=== PATIENT | female | born 1960 | race African-American/Black ===

== ENCOUNTER 2018-10-06 17:21 | Inpatient (IN) | payer SELFPAY ==
[~2018-10-06] VITALS: Ht 167.6 cm; Wt 74.8 kg
[2018-10-06] MEDS ORDERED: LORAZEPAM 2MG/ML CPJ IV ONE (18:00)
[2018-10-06 18:14] LABS: CHLORIDE 80 mEq/L (98-107)
[2018-10-06 18:16] LABS: BASOPHILS % 0.3 % (0.0-2.0); HEMATOCRIT. 29.5 % (36.0-48.0); LYMPHOCYTES % 11.4 % (20.0-50.0); MEAN CORPUSCULAR HEMOGLOBIN 32.8 pg (28.0-32.0); MEAN CORPUSCULAR VOLUME 96.3 fL (81.0-99.0); MEAN PLATELET VOLUME 6.7 fl (7.4-10.4); MONOCYTES % 7.6 % (2.0-8.0); NEUTROPHILS % 80.7 % (40.0-76.0); PLATELET 198 x1000/uL (130-400); RED BLOOD CELL COUNT 3.07 mill/uL (4.2-5.4); RED CELL DISTRIBUTION WIDTH 14.1 % (11.6-14.6)
[2018-10-06 18:17] LABS: ETHANOL BLOOD 84 mg/dL
[2018-10-06] MEDS ORDERED: SODIUM CHLORIDE 0.9% 1,000 ML IV ONE (18:30)
[2018-10-06] MEDS: SODIUM CHLORIDE 0.45% 1,000 ML IV SCH (19:30)
[2018-10-06 20:45] LABS: CLARITY URINE CLEAR (CLEAR); COLOR URINE YELLOW (YELLOW); KETONES URINE 1+ (NEGATIVE); LEUKOCYTE ESTERASE URINE NEGATIVE (NEGATIVE); NITRITE URINE NEGATIVE (NEGATIVE); OCCULT BLOOD URINE 1+ (NEGATIVE); PROTEIN URINE TRACE (NEGATIVE); UROBILINOGEN URINE 0.2 E.U./dL (0.2-1.0)
[2018-10-06 21:07] LABS: *AMPHETAMINES SCREEN URINE NEGATIVE (NEGATIVE)
[2018-10-06 21:09] LABS: *BARBITURATES SCREEN URINE NEGATIVE (NEGATIVE); *BENZODIAZEPINES SCREEN URINE NEGATIVE (NEGATIVE); *COCAINE SCREEN URINE NEGATIVE (NEGATIVE); CANNABINOID URINE SCREEN NEGATIVE (NEGATIVE); METHADONE URINE SCREEN NEGATIVE (NEGATIVE); OPIATES URINE SCREEN NEGATIVE (NEGATIVE); PHENCYCLIDINE URINE SCREEN NEGATIVE (NEGATIVE)
[2018-10-06] MEDS ORDERED: DOCUSATE SODIUM 100MG CAPSULE PO PRN (21:15)
[2018-10-06] MEDS ORDERED: HYDROCODONE/ACETAMINOPHEN 5/325MG TABLET PO PRN (21:15)
[2018-10-06] MEDS ORDERED: LORAZEPAM 2MG/ML CPJ IV PRN (21:15)
[2018-10-06] MEDS ORDERED: MAGNESIUM/ALUMINUM HYDROXIDE/SIMETHICONE 30ML UDC PO PRN (21:15)
[2018-10-06] MEDS ORDERED: CLONIDINE 0.1MG TABLET PO PRN (21:15)
[2018-10-06] MEDS ORDERED: ACETAMINOPHEN 325MG TABLET PO PRN (21:15)
[2018-10-06] MEDS ORDERED: ONDANSETRON HCL 4MG/2ML INJ IV PRN (21:15)
[2018-10-06 22:00] VITALS: BP 127/75
[2018-10-07] VITALS (7 sets, daily range): BP systolic 109–147; BP diastolic 57–83
[2018-10-07] MEDS: SODIUM CHLORIDE 0.45% 1,000 ML IV SCH (03:13)
[2018-10-07] MEDS: ENOXAPARIN 40MG/0.4ML SYR SUBCUT SCH (08:51)
[2018-10-07 09:41] LABS: HEMATOCRIT. 31.3 % (36.0-48.0); HEMOGLOBIN. 10.9 g/dL (12.0-16.0); MEAN CORPUSCULAR HEMOGLOBIN 33.2 pg (28.0-32.0); MEAN PLATELET VOLUME 7.4 fl (7.4-10.4); PLATELET 162 x1000/uL (130-400)
[2018-10-07 09:46] LABS: CHLORIDE 85 mEq/L (98-107)
[2018-10-07] MEDS ORDERED: LORAZEPAM 2MG/ML CPJ IV PRN (10:00)
[2018-10-07] MEDS: THIAMINE HCL 100MG TABLET PO SCH (11:30)
[2018-10-07 12:29] LABS: PLATELET ESTIMATE NORMAL
[2018-10-08] VITALS: BP 102/63
[2018-10-08] MEDS: SODIUM CHLORIDE 0.45% 1,000 ML IV SCH (02:53)
[2018-10-08 04:00] VITALS: BP 99/54
[2018-10-08 08:00] VITALS: BP 105/60
[2018-10-08] MEDS: THIAMINE HCL 100MG TABLET PO SCH (08:55)
[2018-10-08] MEDS: ENOXAPARIN 40MG/0.4ML SYR SUBCUT SCH (08:55)
[2018-10-08 12:00] VITALS: BP 107/67
[2018-10-08 13:14] LABS: CHLORIDE 87 mEq/L (98-107)
[2018-10-08] MEDS: POTASSIUM CHLORIDE 20MEQ/PACKET PO SCH ×2 (14:26→16:51)
[2018-10-08 16:00] VITALS: BP 110/63
[2018-10-08 17:13] VITALS: BP 110/63
== END 2018-10-08 18:33 | disposition home or self-care (01) | DRG 52 ==
LOC: ER 17:21 → EDBD 20:04 → 8WST 20:04 → ENRESERV 20:43
PROVIDERS: ADMIT Hospitalist; ATTEND Hospitalist
DX: G92 Toxic encephalopathy (principal); E87.1 Hypo-osmolality and hyponatremia; F10.20 Alcohol dependence, uncomplicated; F12.90 Cannabis use, unspecified, uncomplicated; F17.210 Nicotine dependence, cigarettes, uncomplicated; Z59.0 Homelessness; Z79.899 Other long term (current) drug therapy
CPT/HCPCS: 36415; 80305; 80307; 80320; 80329; 82962; 93005; 93970; 96374; 99291; J1650; J2060; J7030; G0480